=== PATIENT | male | born 1950 | race Caucasian/White ===

== ENCOUNTER 2017-07-02 06:16 | Day surgery (SDC) | payer MEDICARE ==
[2017-07-02] VITALS (12 sets, daily range): BP systolic 131–169; BP diastolic 74–96; PULSE 63–90; RESP 18–20; TEMP 97–97.6; O2SAT 96
[~2017-07-02] VITALS: Ht 167.6 cm; Wt 95.1 kg
[~2017-07-02 06:16] MED LIST: ATEN-100 PO; CHOL1CAP2 PO; FURO20TA PO; GLUCTAB PO; LEVO75TA3 PO; LISI-360 PO; POTA10IN2 PO; PRED5PAK PO; ROSU40 PO
[2017-07-02] MEDS ORDERED: IOHEXOL 350 MG/ML 50 ML BTL (for Cath Lab) OTHER ONE (06:17)
[2017-07-02] MEDS ORDERED: IOHEXOL 350 MG/ML 100 ML BTL (for Cath Lab) OTHER ONE (06:17)
[2017-07-02] MEDS ORDERED: NS 1000P @30 MLS/HR (KVO) IV SCH (06:45)
[2017-07-02] MEDS ORDERED: LISI10TA3 PO (07:06)
[2017-07-02] MEDS ORDERED: FENO160T PO (07:06)
[2017-07-02] MEDS ORDERED: POTA10CA PO (07:06)
[2017-07-02] MEDS ORDERED: TYLE325T PO (07:06)
[2017-07-02] MEDS ORDERED: UMEC1AER INH (07:06)
[2017-07-02] MEDS ORDERED: ASPI-516 CHEW (07:06)
[2017-07-02] MEDS ORDERED: FURO20TA PO (07:06)
[2017-07-02] MEDS ORDERED: METO25TA3 PO (07:06)
[2017-07-02] MEDS ORDERED: PANT40TA3 PO (07:06)
[2017-07-02] MEDS ORDERED: FLUT50SP EACH NARE (07:06)
[2017-07-02] MEDS ORDERED: METF-382 PO (07:06)
[2017-07-02] MEDS ORDERED: ROSU1TAB10 PO (07:06)
[2017-07-02] MEDS ORDERED: FENO1TAB46 PO (07:06)
[2017-07-02] MEDS ORDERED: LEVO.125 PO (07:06)
[2017-07-02] MEDS ORDERED: CO Q100C9 PO (07:06)
[2017-07-02 07:16] LABS: AUTOMATED NEUTROPHIL # 3.5 TH/MM3 (1.8-7.7); BASOPHIL % 0.6 % (0.0-2.0); EOSINOPHIL # 0.1 TH/MM3 (0-0.4); EOSINOPHIL % 2.2 % (0.0-4.0); HEMATOCRIT 40.6 % (39.0-51.0); LYMPH % 18.7 % (9.0-44.0); LYMPHOCYTE # 0.9 TH/MM3 (1.0-4.8); MEAN CELL VOLUME 88.2 FL (80.0-100.0); MEAN CORPUSCULAR HGB CONC 32.8 % (32.0-36.0); MONO % 9.7 % (0.0-8.0); NEUT % 68.8 % (16.0-70.0); PLATELET COUNT 96 TH/MM3 (150-450); RED CELL DISTRIBUTION WIDTH 14.2 % (11.6-17.2); WHITE BLOOD COUNT 5.1 TH/MM3 (4.0-11.0)
[2017-07-02 07:19] LABS: HEMO FLAGS AUTO DIFF
[2017-07-02 07:24] LABS: APTT (PATIENT) 28.7 SEC (24.3-30.1); INTERNATIONAL NORMALIZED RATIO 1.1 RATIO; PROTHROMBIN TIME - PATIENT 12.2 SEC (9.8-11.6)
[2017-07-02 07:41] LABS: BICARBONATE 28.7 MEQ/L (21.0-32.0); POTASSIUM 3.9 MEQ/L (3.5-5.1)
[2017-07-02 07:58] LABS: PLATELET ESTIMATE SMEAR LOW (NORMAL); PLATELET MORPHOLOGY ENLARGED (NORMAL); SCAN/DIFF AUTO DIFF CONFIRMED
[2017-07-02] MEDS ORDERED: MIDAZOLAM HCL 2 MG/2 ML VIAL ONE (09:04)
[2017-07-02] MEDS ORDERED: HEPARIN-NS/PF INJ 1,000 ML ONE (09:05)
[2017-07-02] MEDS ORDERED: NITROGLYCERIN INJ 5 ML ONE (09:07)
[2017-07-02] MEDS ORDERED: HEPARIN SODIUM - IV 10,000 UNITS/10 ML VIAL ONE (09:07)
[2017-07-02] MEDS ORDERED: VERAPAMIL HCL 5 MG/2 ML VIAL ONE (09:07)
[2017-07-02] MEDS ORDERED: TICAGRELOR 90 MG TAB PO ONE (11:37)
--- NOTE | 2017-07-02 11:46 | CATHPROC ---
[employer] HIS Report Study Information Study Number Admission Scheduled Start Study Start [id number] Jul 02 2017 6:16AM 07/02/2017 Jul 02 2017 8:58AM [facility] Cardiac Catheterization Admit Source Facility Department Other [facility] - Escalation Engineer Physician and Clinical Staff Initial Kemar Zavala Door CaptainArt Corey RN Door Captainmary anne Giles RN, Pedro Cash cathlab, cathlab Recorder Jim Walker RCIS(BS) Recorder Jayson Cobian,(R) ScrAnabell SaucedaRT(R) Procedures Performed Procedure Location (Site) Vessel Name Coronary Angiograms LCA Left Coronary Coronary Angiograms RCA Right Coronary Coronary Angiograms BRYAN-LAD Left Coronary Drug Eluting Inflatio CIRC Prox CIRC PTCA CIRC Prox CIRC Wire insertion Fem Art (right) Femoral Art Wire insertion Radial (left) Radial Art. Equipment Time Fine Arts Chair Description Size Mfg Part Number Used/Scraped [id number] 10:45 [employer] WIRE, ASAHI PROWATER 180CM 180CM Used *[id number] WIRE, WHISPER W/HYDROCOAT [id number] 11:07 [employer] 190CM Used 190CM *[id number] TRANSDUCER, TRUWAVE [id number] 08:59 RICHMOND PERRY * Used W/STOCKCOCK *[id number] 534-560T *[id number] 670-002-00 *[id number] 670-002-00 *[id number] 534-518T *[id number] 534-520T *[id number] 534-517T *3980630 534-521T *[id number] 08:59 Nexmo INDUSTRIES PACK, CCL CUSTOM * Used *[id number] 08:59 PlexPress SUPPORT, ARTERIAL ADULT 82075 *[id number] Used [id number] 10:57 MEDTR[employer]IC BALLOON, 2.0 X 10MM EUPHORA 10MM Used *[id number] 11:18 [employer]TR[employer]IC BALLOON, 2.5 X 12MM EUPHORA 12MM Used *[id number] BALLOON, 2.75 X 8MM NC [id number] 11:22 MEDTRONIC 8MM Used EUPHORA *[id number] BALLOON, 3.0 X 6MM NC [id number] 11:27 MEDTRONIC 6MM Used EUPHORA *[id number] 11:04 MEDTRONIC STENT, 2.5 12MM SOLOMON 2.5 12MM Used *[id number] 10:45 [employer]TR[employer]IC/AVE EBU 3.5 Z2 GUIDE CATHETER FR 6 Used *[id number] [id number] 10:48 Thing[employer] 30 BARRINGTON INDEFLATOR Used *[id number] BAND, RADIAL COMPRESSION TR [id number] 11:36 Placed MEDICAL 24CM Used SHORT 24 *[id number] [id number] 08:59 Thing[employer] WIRE, EXCHANGE 260CM 3MMJ 260CM Used *[id number] 08:59 NAMIC MANIFOLD, 4 PORT * Used *[id number] 08:59 NYCOMED OMNIPAQUE, 350 MG, 150ML 150ML [id number] Used [id number] 08:59 [employer] MEDICAL BLANKET,WARM AIR CCL * Used *[id number] SHEATH, FR6 TRANSRADIAL RM*[id number] 08:59 TM3 Systems FR 6 Used SLENDER 10CM *[id number] Equipment Model, Serial, Lot Number and Expiration Data Description Model Number Serial Number Lot Number Expiration Date BALLOON, 2.75 X 8MM NC [id number] 03-12-2019 EUPHORA BALLOON, 3.0 X 6MM NC EUPHORA [id number] 02-23-2019 STENT, 2.5 12MM SOLOMON [id number] 02-06-2019 History: Current Medications Medication Dosage/Unit Route Frequency Last Date/Time Taken Statins (any) Beta Gabriela ASA History: Allergies Allergy Reaction No Known Allergies History: Risk Factors Family History of Hypertension Dyslipidemia Previous HI Previous Heart Failure Premature CAD Yes Yes No Yes No Prior Valve Prior PCI Prior PCIDate Prior CABG Prior CABGDate Surgery Yes Yes 08/13/2008 Yes 08/13/2011 Cerebrovascular Peripheral Artery Chronic Lung On Dialysis Diabetes Diabetes Therapy Disease Disease Disease No No No Yes Yes Oral History: Symptoms/Diagnosis Selection Items Chest pain History: CV Disease Selection Items Known CAD History: Stress Tests Stress or Imaging Studies Performed Yes Standard Exercise Stress Test No Stress Echo No Stress Test SPECT Stress Test SPECT Result Stress Test SPECT Ischemia Risk/Extent Yes Positive High Stress Test CMR No Cardiac CTA Coronary Calcium Score No No History: Other Disease Selection Items CAD HTN History: HI/CV Data Previous Cath Date Previous CABG Date 08/13/2008 08/13/2011 History: Other Current Smoker Method Quit Packs a Day Years Used Pack Years No Cigarettes 12 Years Ago 2 30 60 Labs Hgb (g/dl) Hct (%) WBC (l/cumm) Platelets (thousands) 11.60-17.00 35.00-51.00 4.00-11.00 150.00-450.00 13.3 40.6 5.1 96 Glucose (mg/dl) BUN (mg/dl) Creatinine (mg/dl) BUN:Creatinine (1:x) 74.00-106.00 7.00-18.00 0.50-1.30 10.00-20.00 154 17 1.2 14.2 Na (meq/l) K (meq/l) 136.00-145.00 3.50-5.10 139 3.9 INR (PTT:PT) 0.90-1.10 1.1 CPK-MB (ng/ML) 0.50-3.60 Not Drawn Medication Medication Total Dose (Bolus/Oral) Medication Total Dosage/Unit 1% XYLOCAINE 3 mL BRILINTA 180 mg FENTANYL 100 mcg HEPARIN 6700 units RADIAL COCKTAIL 5 mL (Bolus) VERSED 0.5 mg Medications (Bolus/Oral) Medication Time Given Dosage/Unit Administered By Reason 07/02/2017 10:11:32 VERSED 0.5 mg Art Matos AM 0.5 mg VERSED given in lab by Art Matos RN in Left Antecubital via Peripheral IV. Ordered by Kemar House 07/02/2017 10:11:38 FENTANYL 50 mcg Art Matos AM 50 mcg FENTANYL given in lab by Art Matos RN in Left Antecubital via Peripheral IV. Ordered by Kemar Garcia 07/02/2017 10:18:00 1% XYLOCAINE 3 mL Kemar Garcia AM 3 mL 1% XYLOCAINE given in lab by Kemar Garcia in Left Radial via Subcutaneous. 07/02/2017 10:20:20 Ntg 200mcg Verapamil 2.5mg Heparin RADIAL COCKTAIL 5 mL (Bolus) Kemar Garcia AM 3000U 5 mL (Bolus) RADIAL COCKTAIL given in lab by Kemar Garcia in Left Radial via Radial. Using [So lution Name]. Reason: Ntg 200mcg Verapamil 2.5mg Heparin 3800U. 07/02/2017 10:47:55 HEPARIN 5700 units Art Matos AM 5700 units HEPARIN given in lab by Art Matos RN in Left Antecubital via Peripheral IV. Ordered by Kemar Garcia 07/02/2017 10:48:07 FENTANYL 50 mcg Art Matos AM 50 mcg FENTANYL given in lab by Art Matos RN in Left Antecubital via Peripheral IV. Ordered by Kemar Garcia 07/02/2017 11:22:44 HEPARIN 1000 units Pedro Giles RN AM 1000 units HEPARIN given in lab by Pedro Giles RN via Peripheral IV. Ordered by Kemar Garcia 07/02/2017 11:40:00 BRILINTA 180 mg Pedro Giles RN, AM 180 mg BRILINTA given in lab by Pedro Giles RN via Oral. Ordered by Kemar Garcia Medication (Drip) Medication Time Given Dosage/Unit Concentration/Unit Diluent (ml) Solutio n IV Solutions 07/02/2017 8:58:38 AM 0 mL (IV) 500 NaCl .9 Patient arrived on IV Solutions given by cathlab, mary in Left Antecubital via Peripheral IV. Pump /Drip Flow = 20 ml/hr using NaCl .9. Ordered by Kemar Garcia Initial Case Assessment Cardiovascular HR Rhythm NIBP Chest Pain 75 nsr 179/90 0 Edema Present Skin color Skin None Normal Warm Dry Circulatory - Right Pulses Dorsalis Pedis Femoral Radial 2 2 2 Scale (0,1,2,3,4,d) Scale (0,1,2,3,4,d) Neurological State Oriented to time-place- Alert Moves all extremities person Respiration - General Respiration Rate SpO2 (%) (B/min) 15 96 Final Case Assessment Cardiovascular HR Rhythm NIBP Chest Pain 80 nsr 155/99 0 Edema Present Skin color Skin None Normal Warm Dry Circulatory - Right Pulses Dorsalis Pedis Femoral Radial 2 2 2 Scale (0,1,2,3,4,d) Scale (0,1,2,3,4,d) Neurological State Oriented to time-place- Alert Moves all extremities person Respiration - General Respiration Rate SpO2 (%) (B/min) 15 96 Chronological Log Time Study Chronological Log 8:58:29 Patient arrived via Bed. 8:58:30 Patient Name, D.O.B, / Armband Verified By R.N. 8:58:31 Consent signed by the physician and the patient and verified by the Escalation Engineer staff. 8:58:31 Pre-op and post- op instructions given; patient acknowledges understanding of instructions. 8:58:32 Verbal Stimulation=2 Physical Stimulation=2 Airway=2 Respiration=2 TOTAL=8. (0=absent, 1=san ited, 2=present) 8:58:32 Presedation assessment performed by Escalation Engineer RN. 8:58:33 Allens test performed on the left radial and ulnar artery. 8:58:35 Immediate Presedation assesment performed by physician. 8:58:35 Patient has been NPO for More than 6Hrs. 8:58:36 Skin Breakdown- none per patient 8:58:37 Patient Warmer Placed on the Table. 8:58:38 A # 20 IV was noted in the Antecubital (left). Grade = 0 Patient arrived on IV Solutions given by cathlab, cathlab in Left Antecubital via Peripheral IV . Pump/Drip Flow = 20 8:58:38 ml/hr using NaCl .9. Ordered by Kemar Garcia 8:58:39 History and physical on the chart or being dictated. Assessment: Initial Case, HR=75 BPM, Rhythm=nsr, VHTF=725/90 mmhg, Chest Pain=0, Edema=None, Co indu=Normal, Skin = Warm, Dry 9:02:49 Right Pulses: Napoleon Ped=2, Femoral=2, Radial=2 Neurological: State=Alert, Ox3, ESCALANTE Respiration: Resp=15 B/min, SpO2=96 % Vitals capture started with the following parameters, Patient=Adult, Interval=5 min, Initial Pr frwxud=231 mmHg, 9:03:36 Deflation Rate=5 mmHg, Cuff placed on Left Arm 9:05:01 HR=73 bpm, ELKZ=609/90 mmhg, SpO2=97.0 %, Resp=16 B/min, Pain=0, Blanca=10, Seals=2 9:07:27 Reference ECG taken 9:09:23 HR=75 bpm, DJAE=721/91 mmhg, SpO2=96.0 %, Resp=19 B/min, Pain=0, Blanca=10, Seals=2 9:10:00 Left radial and groin(s) prepped with 2% chlorhexidine, and draped after a 3 min. waiting ti me. 9:14:22 HR=72 bpm, BWVA=246/94 mmhg, SpO2=96.0 %, Resp=16 B/min, Pain=0, Blanca=10, Seals=2 9:19:23 HR=75 bpm, XPKQ=174/88 mmhg, SpO2=95 %, Resp=19 B/min, Pain=0, Blanca=10, Seals=2 9:24:22 HR=74 bpm, VJON=896/87 mmhg, SpO2=95 %, Resp=19 B/min, Pain=0, Blanca=10, Seals=2 9:29:21 HR=70 bpm, UMXZ=079/84 mmhg, SpO2=93.0 %, Resp=16 B/min, Pain=0, Blanca=10, Seals=2 9:34:20 HR=69 bpm, UMUT=382/80 mmhg, SpO2=95 %, Resp=18 B/min, Pain=0, Blanca=10, Seals=2 9:39:21 HR=68 bpm, QHWW=630/81 mmhg, SpO2=93.0 %, Resp=16 B/min, Pain=0, Blanca=10, Seals=2 9:44:22 HR=69 bpm, VAYJ=568/86 mmhg, SpO2=92.0 %, Resp=17 B/min, Pain=0, Blanca=10, Seals=2 9:49:21 HR=66 bpm, NUBA=872/85 mmhg, SpO2=91.0 %, Resp=16 B/min, Pain=0, Blanca=10, Seals=2 9:54:20 HR=67 bpm, YLOP=895/83 mmhg, SpO2=94.0 %, Resp=17 B/min, Pain=0, Blanca=10, Seals=2 9:59:17 HR=65 bpm, OOAG=654/82 mmhg, SpO2=95 %, Resp=16 B/min, Pain=0, Blanca=10, Seals=2 10:04:22 HR=67 bpm, DYSS=693/81 mmhg, SpO2=92.0 %, Resp=19 B/min, Pain=0, Blanca=10, Seals=2 10:08:55 MD arrived. 10:09:21 Contrast Scanned 10::22 Immediate Presedation assesment performed by physician. 10:09:26 HR=70 bpm, LLWJ=326/89 mmhg, SpO2=94.0 %, Resp=18 B/min, Pain=0, Blanca=10, Seals=2 10:11:32 0.5 mg VERSED given in lab by Art Matos, RN in Left Antecubital via Peripheral IV. Ord ered by Kemar Garcia. 50 mcg FENTANYL given in lab by Art Matos, RN in Left Antecubital via Peripheral IV. Order ed by Kemar Garcia 10:11:38 G. 10:15:03 HR=67 bpm, KROR=270/77 mmhg, LjM4=728.0 %, Resp=16 B/min, Pain=0, Blanca=10, Seals=2 Time Out. Correct patient, correct procedure, correct physician, power injector not loaded with contrast with surgical 10:16:52 team present. Time Out Concurred by MD and individual staff in procedure. 10:17:09 Case Start 10:17:10 Verbal Stimulation=2 Physical Stimulation=2 Airway=2 Respiration=2 TOTAL=8. (0=absent, 1=li mited, 2=present) 10:18:00 3 mL 1% XYLOCAINE given in lab by Kemar Garcia in Left Radial via Subcutaneous. 10:19:56 Access site was Left Radial Artery. 10:20:03 HR=73 bpm, EQXU=467/96 mmhg, SpO2=96.0 %, Resp=14 B/min, Pain=0, Blanca=10, Seals=2 A SHEATH, FR6 TRANSRADIAL SLENDER 10CM FR 6 was advanced into the Radial (left) using the Slim modi 10:20:09 technique. 5 mL (Bolus) RADIAL COCKTAIL given in lab by Kemar Garcia in Left Radial via Radial. Usi ng [Solution Name]. 10:20:20 Reason: Ntg 200mcg Verapamil 2.5mg Heparin 3800U. A JR 4.0 INFINITI CATHETER FR 5 was advanced over a wire. OMNIPAQUE, 350 MG, 150ML 150ML was us ed for 10:20:47 injections. Recorded Pressure: Ao, HR=80, Condition=Condition 1 10:24:00 (Aorta) Ao 125/71/94 10:24:23 HR=78 bpm, FMDE=028/84 mmhg, SpO2=96.0 %, Resp=15 B/min, Pain=0, Blanca=10, Seals=2 10:29:24 HR=84 bpm, XPLQ=069/88 mmhg, SpO2=95.0 %, Resp=18 B/min, Pain=0, Blanca=10, Seals=2 10:30:50 The RCA was injected and visualized at various angles. OMNIPAQUE, 350 MG, 150ML 150ML used . After removing the current catheter a JL 4.0 INFINITI CATHETER FR 5 was advanced over a WIRE, E XCHANGE 260CM 10:32:08 3MMJ 260CM. 10:34:25 HR=88 bpm, UNUE=538/86 mmhg, SpO2=94.0 %, Resp=17 B/min, Pain=0, Blanca=10, Seals=2 After removing the current catheter a JL 4.5 INFINITI CATHETER FR 5 was advanced over a WIRE, E XCHANGE 260CM 10:34:33 3MMJ 260CM. After removing the current catheter a JL 3.5 INFINITI CATHETER FR 5 was advanced over a WIRE, E XCHANGE 260CM 10:38:28 3MMJ 260CM. 10:39:26 HR=82 bpm, XNGC=256/85 mmhg, SpO2=94.0 %, Resp=19 B/min, Pain=0, Blanca=10, Seals=2 10:41:29 The LCA was injected and visualized at various angles. OMNIPAQUE, 350 MG, 150ML 150ML used . After removing the current catheter a KENTRELL INFINITI CATHETER FR 5 was advanced over a WIRE, EXCH KAEL 260CM 10:43:33 3MMJ 260CM. 10:44:27 HR=83 bpm, NZYS=029/86 mmhg, SpO2=95.0 %, Resp=17 B/min, Pain=0, Blanca=10, Seals=2 10:46:47 The BRYAN-LAD was injected and visualized at various angles. OMNIPAQUE, 350 MG, 150ML 150ML used. After removing the current catheter a EBU 3.5 Z2 GUIDE CATHETER FR 6 was advanced over a WIRE, EXCHANGE 10:46:53 260CM 3MMJ 260CM. 5700 units HEPARIN given in lab by Art Matos, RN in Left Antecubital via Peripheral IV. Or dered by Kemar Garcia 10:47:55 G. 50 mcg FENTANYL given in lab by Art Matos, RN in Left Antecubital via Peripheral IV. Order ed by Kemar Garcia 10:48:07 G. 10:49:26 HR=80 bpm, GGDW=426/93 mmhg, SpO2=95 %, Resp=16 B/min, Pain=0, Blanca=10, Seals=2 After removing the current catheter a JL 3.5 GUIDE CATHETER FR 6 was advanced over a WIRE, EXCH KAEL 260CM 10:53:24 3MMJ 260CM. 10:54:27 HR=82 bpm, XPWG=341/93 mmhg, SpO2=94.0 %, Resp=17 B/min, Pain=0, Blanca=10, Seals=2 10:56:38 A WIRE, ASAHI PROWATER 180CM 180CM was inserted via Radial (left). 10:58:27 Interventional wire has crossed the lesion 10:59:28 HR=82 bpm, HMAS=852/86 mmhg, SpO2=94.0 %, Resp=13 B/min, Pain=0, Blanca=10, Seals=2 10:59:37 Activated Clotting Time Drawn A BALLOON, 2.0 X 10MM EUPHORA 10MM was inserted over WIRE, ASAHI PROWATER 180CM 180CM via the C IRC 11:00:18 Prox. A BALLOON, 2.0 X 10MM EUPHORA 10MM over a WIRE, ASAHI PROWATER 180CM 180CM in the CIRC Prox was 11:02:24 inflated using a 30 BARRINGTON INDEFLATOR at 10 barrington for 25 sec. 11:02:51 Balloon Removed. A STENT, 2.5 12MM SOLOMON 2.5 12MM was advanced through a JL 3.5 GUIDE CATHETER FR 6 over a WIRE, ASAHI 11:03:46 PROWATER 180CM 180CM. 11:04:27 HR=80 bpm, RFHQ=427/88 mmhg, Resp=17 B/min, Pain=0, Blanca=10, Seals=2 11:04:54 ACT (Normal Range 90-180) = 297 11:06:40 Stent not deployed. Stent removed and intact. 11:07:20 A WIRE, WHISPER W/HYDROCOAT 190CM 190CM was inserted via Fem Art (right). 11:09:28 HR=80 bpm, KWUN=133/87 mmhg, SpO2=96.0 %, Resp=11 B/min, Pain=0, Blanca=10, Seals=2 A STENT, 2.5 12MM SOLOMON 2.5 12MM was advanced through a JL 3.5 GUIDE CATHETER FR 6 over a WIRE, ASAHI 11:09:37 PROWATER 180CM 180CM. 11:10:23 Stent not deployed. Stent removed and intact. A STENT, 2.5 12MM SOLOMON 2.5 12MM was advanced through a JL 3.5 GUIDE CATHETER FR 6 over a WIRE, WHISPER 11:11:28 W/HYDROCOAT 190CM 190CM. 11:12:03 Stent not deployed. Stent removed and intact. 11:14:27 HR=81 bpm, DZXD=003/86 mmhg, SpO2=95.0 %, Resp=16 B/min, Pain=0, Blanca=10, Seals=2 A BALLOON, 2.5 X 12MM EUPHORA 12MM was inserted over WIRE, ASAHI PROWATER 180CM 180CM via the C IRC 11:15:32 Prox. A BALLOON, 2.5 X 12MM EUPHORA 12MM over a WIRE, ASAHI PROWATER 180CM 180CM in the CIRC Prox was 11:15:44 inflated using a 30 BARRINGTON INDEFLATOR at 12 barrington for 16 sec. A BALLOON, 2.5 X 12MM EUPHORA 12MM over a WIRE, ASAHI PROWATER 180CM 180CM in the CIRC Prox was 11:16:22 inflated using a 30 BARRINGTON INDEFLATOR at 12 barrington for 18 sec. 11:17:37 Balloon Removed. A STENT, 2.5 12MM SOLOMON 2.5 12MM was advanced through a JL 3.5 GUIDE CATHETER FR 6 over a WIRE, ASAHI 11:17:42 PROWATER 180CM 180CM. 11:18:44 Wire removed 11:19:28 HR=81 bpm, OOZB=985/90 mmhg, ErI3=711.0 %, Resp=16 B/min, Pain=0, Blanca=10, Seals=2 A STENT, 2.5 12MM SOLOMON 2.5 12MM was deployed using a 30 BARRINGTON INDEFLATOR at 18 atmospheres for 25 seconds in :: the CIRC Prox. ::43 Re-inflated the stent balloon in the CIRC Prox to 18 BARRINGTON for 10 seconds. : Delivery device removed A BALLOON, 2.75 X 8MM NC EUPHORA 8MM was inserted over WIRE, WHISPER W/HYDROCOAT 190CM 190CM vi a the :: CIRC Prox. : 1000 units HEPARIN given in lab by Pedro Giles RN via Peripheral IV. Ordered by Kemar Garcia A BALLOON, 2.75 X 8MM NC EUPHORA 8MM over a WIRE, ASAHI PROWATER 180CM 180CM in the CIRC Prox w as :28 inflated using a 30 BARRINGTON INDEFLATOR at 18 barrington for 16 sec. A BALLOON, 2.75 X 8MM NC EUPHORA 8MM over a WIRE, ASAHI PROWATER 180CM 180CM in the CIRC Prox w as ::58 inflated using a 30 BARRINGTON INDEFLATOR at 18 barrington for 10 sec. 11:24:29 HR=80 bpm, YGVS=715/93 mmhg, SpO2=95.0 %, Resp=17 B/min, Pain=0, Blanca=10, Seals=2 A BALLOON, 2.75 X 8MM NC EUPHORA 8MM over a WIRE, ASAHI PROWATER 180CM 180CM in the CIRC Prox w as :02 inflated using a 30 BARRINGTON INDEFLATOR at 18 barrington for 10 sec. :: Balloon Removed. A BALLOON, 3.0 X 6MM NC EUPHORA 6MM was inserted over WIRE, WHISPER W/HYDROCOAT 190CM 190CM via the :12 CIRC Prox. A BALLOON, 3.0 X 6MM NC EUPHORA 6MM over a WIRE, WHISPER W/HYDROCOAT 190CM 190CM in the CIRC Pr ox : was inflated using a 30 BARRINGTON INDEFLATOR at 12 barrington for 10 sec. A BALLOON, 3.0 X 6MM NC EUPHORA 6MM over a WIRE, WHISPER W/HYDROCOAT 190CM 190CM in the CIRC Pr ox 11:28:44 was inflated using a 30 BARRINGTON INDEFLATOR at 16 barrington for 10 sec. A BALLOON, 3.0 X 6MM NC EUPHORA 6MM over a WIRE, WHISPER W/HYDROCOAT 190CM 190CM in the CIRC Pr ox 11:29:12 was inflated using a 30 BARRINGTON INDEFLATOR at 16 barrington for 10 sec. A BALLOON, 3.0 X 6MM NC EUPHORA 6MM over a WIRE, WHISPER W/HYDROCOAT 190CM 190CM in the CIRC Pr ox 11:29:26 was inflated using a 30 BARRINGTON INDEFLATOR at 20 barrington for 10 sec. 11:29:30 HR=83 bpm, GCQG=890/96 mmhg, SpO2=95.0 %, Resp=16 B/min, Pain=0, Blanca=10, Seals=2 A BALLOON, 3.0 X 6MM NC EUPHORA 6MM over a WIRE, WHISPER W/HYDROCOAT 190CM 190CM in the CIRC Pr ox 11:29:30 was inflated using a 30 BARRINGTON INDEFLATOR at 24 barrington for 10 sec. A BALLOON, 3.0 X 6MM NC EUPHORA 6MM over a WIRE, WHISPER W/HYDROCOAT 190CM 190CM in the CIRC P rebekah 11:30:10 was inflated using a 30 BARRINGTON INDEFLATOR at 24 barrington for 10 sec. 11:30:34 Balloon Removed. 11:33:13 Wire removed 11:33:41 Catheter was removed 11:34:32 HR=83 bpm, ALNE=290/99 mmhg, SpO2=96.0 %, Resp=15 B/min, Pain=0, Blanca=10, Seals=2 Radial Compression Device Used. 10 mLs of air placed in BAND, RADIAL COMPRESSION TR SHORT 24 2 4CM. Affected 11:34:47 hand 95 % O2 saturation. 11:35:00 Case End Assessment: Final Case, HR=80 BPM, Rhythm=nsr, MCHL=082/99 mmhg, Chest Pain=0, Edema=None, Col or=Normal, Skin = Warm, Dry 11:35:49 Right Pulses: Napoleon Ped=2, Femoral=2, Radial=2 Neurological: State=Alert, Ox3, ESCALANTE Respiration: Resp=15 B/min, SpO2=96 % 11:36:03 Sterile dressing applied to site 11:36:04 No case complications noted. 11:36:04 Cine recording checked. 11:36:06 Holding Area notified of successful intervention. 11:36:06 Bedside Report will be given. 11:36:07 Implantable Device card placed in patient's chart. 11:36:08 Contrast Scanned 11:36:09 Verbal Stimulation=2 Physical Stimulation=2 Airway=2 Respiration=2 TOTAL=8. (0=absent, 1=l imited, 2=present) 11:39:37 HR=80 bpm, SEIH=105/86 mmhg, SpO2=97.0 %, Resp=16 B/min, Pain=0, Blanca=10, Seals=2 11:40:00 180 mg BRILINTA given in lab by Pedro Giles RN via Oral. Ordered by Kemar Garcia 11:44:37 Patient moved to [facility] End Study - Contrast Media Used In Study Contrast Total Opened (mL) Total Used (mL) Total Wasted (mL) Omnipaque 150 150 0 End Study - Maximum Contrast Load Max Contrast Load (mL) 396.6 End Study - Radiation Exposure Fluoro Time (minutes) 22.5 End Study - Patient Disposition Complications Transferred To Interventional Outcome No Escalation Engineer Holding successful
[2017-07-02] MEDS ORDERED: oxyCODONE/ACETAMINOPHEN 10 MG/325 MG TAB PO PRN (12:00)
[2017-07-02] MEDS ORDERED: oxyCODONE/ACETAMINOPHEN 5 MG/325 MG TAB PO PRN (12:00)
[2017-07-02] MEDS ORDERED: ACETAMINOPHEN 325 MG TAB PO PRN (12:00)
[2017-07-02] MEDS ORDERED: MISC INFORMATION XX ONE (14:45)
[2017-07-02] MEDS: ACETAMINOPHEN 325 MG TAB PO PRN (15:05)
--- NOTE | 2017-07-02 18:53 | EKG ---
Date Performed: 07/02/2017 Time Performed: 07:03:00 PTAGE: 67 years EKG: Sinus rhythm with borderline 1st degree A-V block. Leftward axis Consider Inferior infarct - age undetermined Lat eral T wave changes may be due to myocardial ischemia Abnormal ECG PREVIOUS TRACING : 07/29/2014 16.10 DOCTOR: Nahun Mike Interpretating Date/Time 07/02/2017 18:52:21
[2017-07-02] MEDS: POTASSIUM CHLORIDE 10 MEQ CAP PO SCH (20:59)
[2017-07-02] MEDS: TICAGRELOR 90 MG TAB PO SCH (21:00)
[2017-07-02] MEDS: METOPROLOL TARTRATE 25 MG TAB PO SCH (21:01)
[2017-07-03] VITALS (15 sets, daily range): BP systolic 110–153; BP diastolic 68–93; PULSE 62–82; RESP 18; TEMP 97.7–97.9; O2SAT 94–96
[2017-07-03 05:59] LABS: AUTOMATED NEUTROPHIL # 3.1 TH/MM3 (1.8-7.7); BASOPHIL % 0.6 % (0.0-2.0); EOSINOPHIL # 0.1 TH/MM3 (0-0.4); EOSINOPHIL % 2.1 % (0.0-4.0); HEMATOCRIT 38.5 % (39.0-51.0); LYMPH % 20.6 % (9.0-44.0); MEAN CELL VOLUME 88.5 FL (80.0-100.0); MEAN CORPUSCULAR HGB CONC 32.7 % (32.0-36.0); MONO % 10.2 % (0.0-8.0); NEUT % 66.5 % (16.0-70.0); RED BLOOD COUNT 4.36 MIL/MM3 (4.50-5.90); WHITE BLOOD COUNT 4.7 TH/MM3 (4.0-11.0)
[2017-07-03] MEDS ORDERED: LEVOTHYROXINE SODIUM 125 MCG TAB PO SCH (06:00)
[2017-07-03 06:01] LABS: HEMO FLAGS AUTO DIFF
--- NOTE | 2017-07-03 06:10 | MA ---
cc: KEMAR GURROLA DO DATE OF PROCEDURE July 02, 2017 PROCEDURE Coronary angiogram, bypass angiogram, Crane drug-eluting stent (2.5 x 12) to the left circumflex. Moderate sedation 83 minutes PREPROCEDURE DIAGNOSIS Unstable angina on antianginal medications. Abnormal stress test. POSTPROCEDURE DIAGNOSES History of CABG x 1 (08/13 patent). Coronary artery disease status post Crane drug-eluting stent (2.5 x 12) to ostial left circumflex. MEDICATIONS 1. Versed 0.5 mg. 2. Fentanyl 100 mcg. 3. Verapamil 2.5 mg. 4. Nitro 200 mcg. 5. Heparin 10,500 units. 6. Brilinta 180 mg. CONTRAST 150 cc. FLUOROSCOPY 22.5 minutes. MODERATE SEDATION 83 minutes. ESTIMATED BLOOD LOSS 20 cc. PROCEDURAL SUMMARY Yvon Wilson is a pleasant 67-year-old male who sees my partner Dr. Pavon in the office and underwent stress testing due to chest pain. He was found to have a large area of lateral ischemia and because of this he was recommended cardiac catheterization. The risks, benefits and alternatives were explained to him and he consented as such. He was brought to the lab and prepped in the usual sterile fashion. The left radial artery was accessed using a modified Seldinger technique and placement of a 5/6 Wolof Slender Sheath. This was easily aspirated and flushed. A JR-4 was advanced over the J-wire to the ascending aorta and used for selective angiography of the right coronary artery. This was exchanged out over for a JL-3.5 which was used for selective angiography of the left coronary artery system. The JL-3.5 was exchanged out for an IM catheter which was used for selective angiography of the BRYAN to LAD. Please see notes below for intervention. Postprocedure a radial band was placed over the arteriotomy site for hemostasis. The patient was given 180 mg of Brilinta. The patient left the label maker cardiovascularly stable. FINDINGS LEFT MAIN: Normal-sized vessel with no significant disease. It trifurcates into an LAD, ramus and circumflex. LAD: Diffuse 50-70% disease throughout. It supplies two small diagonals and in the midportion is noted to have competitive flow. RAMUS: 100% occluded stent in the ostium. The ostial stent is noted to come back into the left main somewhat. LEFT CIRCUMFLEX: Normal-sized vessel with a 90% stenosis in the ostial portion. Otherwise no significant disease. It supplies three obtuse marginals as well as a PDA. RCA: Nondominant vessel which supplies an RV branch. BRYAN to LAD: Patent with good flow. Distal to the anastomosis there is a 50% lesion in the LAD before the apex. INTERVENTION Because of Mr. Wilson's unstable angina on multiple antianginals and abnormal stress test with lateral ischemia, it was felt that intervening on the left circumflex was his best option. He was given heparin as an additional anticoagulant. An EBU guide was attempted to engage in the left main but was unable to and so a JL-3.5 guide was engaged in the left main. A Prowater wire was advanced into the distal circumflex. A Compliant balloon (2 x 12) was used to predilate the lesion. I was unable to place a stent across the lesion due to the 90-degree turn of the left circumflex and so a moderate support Whisper wire was then placed distally in the left circumflex as a steve wire. A compliant balloon (2.5 x 12) was then used to further predilate the lesion. An Eder drug-eluting stent (2.5 x 12) was then placed across the lesion and stented back to the left main. A Non-Compliant balloon (2.5 x 6) was then used to post-dilate the stent. There was still some mild post-stenosis and so a noncompliant balloon (3 x 6) was used further to try to dilate the lesion. There was still 10% post stenosis in the midportion of the stent which could not be further dilated. The wire was removed. Guide was removed. IMPRESSIONS 1. Unstable angina on multiple antianginals. 2. History of CABG x1 with a patent BRYAN to LAD. 3. Coronary artery disease status post Crane drug-eluting stent (2.5 x 12) to ostial left circumflex. RECOMMENDATIONS 1. Mr. Wilson underwent stenting of his left circumflex with a drug-eluting stent and will be placed on aspirin and Brilinta therapy as he previously had stent thrombosis while on Plavix. 2. He will be watched overnight and if stable in the morning discharged home. 3. Upon discharge he will follow up with Dr. Pavon. Thank you for allowing me to see Yvon Wilson. If there are any questions, please do not hesitate to call. Kemar Gurrola DO ALYSIAP/SSB /8:23 PM /6:00 AM
[2017-07-03 06:13] LABS: BICARBONATE 26.2 MEQ/L (21.0-32.0)
[2017-07-03 06:16] LABS: POTASSIUM 4.2 MEQ/L (3.5-5.1)
[2017-07-03] MEDS: ACETAMINOPHEN 325 MG TAB PO PRN (06:27)
[2017-07-03] MEDS ORDERED: LISINOPRIL 10 MG TAB PO SCH (09:00)
[2017-07-03] MEDS ORDERED: FENOFIBRATE 145 MG TAB PO SCH (09:00)
[2017-07-03] MEDS ORDERED: FUROSEMIDE 20 MG TAB PO SCH (09:00)
[2017-07-03] MEDS ORDERED: ATORVASTATIN 80 MG TAB PO SCH (09:00)
[2017-07-03] MEDS ORDERED: PANTOPRAZOLE SOD 40 MG DELAYED RELEASE TAB PO SCH (09:00)
[2017-07-03] MEDS ORDERED: ASPIRIN 81 MG CHEW TAB CHEW SCH (09:00)
[2017-07-03] MEDS ORDERED: UMECLIDINIUM 62.5 MCG/VILANTEROL 25 MCG INHALER INH SCH (09:00)
[2017-07-03] MEDS ORDERED: FENOFIBRATE 40 MG PO SCH (09:00)
[2017-07-03] MEDS ORDERED: NON-FORMULARY DRUG (Coenzyme Q10 (Ubidecarenone) (Co Q 10) 200 MG) PO SCH (09:00)
[2017-07-03 09:17] LABS: PLATELET COUNT 109 TH/MM3 (150-450); SCAN/DIFF AUTO DIFF CONFIRMED
[2017-07-03] MEDS: POTASSIUM CHLORIDE 10 MEQ CAP PO SCH (09:55)
[2017-07-03] MEDS: TICAGRELOR 90 MG TAB PO SCH (09:56)
[2017-07-03] MEDS: METOPROLOL TARTRATE 25 MG TAB PO SCH (09:57)
[2017-07-03] MEDS ORDERED: BRIL90TA PO (11:45)
[2017-07-03] MEDS ORDERED: METF-382 PO (11:45)
--- NOTE | 2017-07-03 23:11 | PD.CARD.PN ---
Subjective Subjective Remarks Patient seen this morning, late entry note Doing well, up out of bed ambulating. Objective Medications Current Medications Sodium Chloride 1,000 ml @ 30 mls/hr Q24H IV Last administered on 07/02/17 18:06; Start 07/02/17 at 06:45; Stop 07/03/17 at 12:44; Status DC Midazolam HCl (Versed Inj) 2 mg STK-MED ONCE .ROUTE Last administered on 09:04; Start 07/02/17 at 09:04; Stop 07/02/17 at 09:05; Status DC Fentanyl Citrate (fentaNYL INJ) 100 mcg STK-MED ONCE .ROUTE Last administered on 07/02/17 09:04; Start 07/02/17 at 09:04; Stop 07/02/17 at 09:05; Status DC Heparin Sodium/ Sodium Chloride 1,000 ml @ As Directed STK-MED ONCE .ROUTE Last administered on 07/02/17 09:05; Start 07/02/17 at 09:05; Stop 07/02/17 at 09:06; Status DC Verapamil HCl (Isoptin Inj) 5 mg STK-MED ONCE .ROUTE Last administered on 07/02 09:07; Start 07/02/17 at 09:07; Stop 07/02/17 at 09:08; Status DC Heparin Sodium (Porcine) (Heparin Inj) 10,000 units STK-MED ONCE .ROUTE Last administered on 07/02/17 09:07; Start 07/02/17 at 09:07; Stop 07/02/17 at 09 :08; Status DC Nitroglycerin 5 ml @ As Directed STK-MED ONCE .ROUTE Last administered on 07/02 09:07; Start 07/02/17 at 09:07; Stop 07/02/17 at 09:08; Status DC Ticagrelor (Brilinta) 180 mg STK-MED ONCE PO Last administered on 07/02/17 11 :37; Start 07/02/17 at 11:37; Stop 07/02/17 at 11:38; Status DC Acetaminophen (Tylenol) 650 mg Q4H PRN PO PAIN SCALE 1 TO 3; Start 07/02/17 at 12:00; Stop 07/02/17 at 12:00; Status DC Aspirin (Aspirin Chew) 81 mg DAILY CHEW Last administered on 07/03/17 09:56; Start 07/03/17 at 09:00; Stop 07/03/17 at 12:44; Status DC Furosemide (Lasix) 20 mg DAILY PO Last administered on 07/03/17 09:57; Start 07/03/17 at 09:00; Stop 07/03/17 at 12:44; Status DC Levothyroxine Sodium (Synthroid) 125 mcg DAILY@0600 PO Last administered on 06:26; Start 07/03/17 at 06:00; Stop 07/03/17 at 12:44; Status DC Lisinopril (Prinivil) 10 mg DAILY PO Last administered on 07/03/17 09:57; Start 07/03/17 at 09:00; Stop 07/03/17 at 12:44; Status DC Metoprolol Tartrate (Lopressor) 25 mg BID PO Last administered on 07/03/17 09 :57; Start 07/02/17 at 21:00; Stop 07/03/17 at 12:44; Status DC Pantoprazole Sodium (Protonix) 40 mg DAILY PO Last administered on 07/03/17 09:56; Start 07/03/17 at 09:00; Stop 07/03/17 at 12:44; Status DC Potassium Chloride (KCl) 10 meq BID PO Last administered on 07/03/17 09:55; Start 07/02/17 at 21:00; Stop 07/03/17 at 12:44; Status DC Non-Formulary Medication 200 mg DAILY PO ; Start 07/03/17 at 09:00; Stop 07/03 at 09:00; Status DC Non-Formulary Medication 40 mg DAILY PO ; Start 07/03/17 at 09:00; Status UNV Fenofibrate (Tricor) 145 mg DAILY PO Last administered on 07/03/17 09:56; Start 07/03/17 at 09:00; Stop 07/03/17 at 12:44; Status DC Atorvastatin Calcium (Lipitor) 80 mg DAILY PO Last administered on 07/03/17 09:54; Start 07/03/17 at 09:00; Stop 07/03/17 at 12:44; Status DC Acetaminophen (Tylenol) 325 mg Q4H PRN PO PAIN SCALE 1 TO 2 Last administered on 07/03/17 06:27; Start 07/02/17 at 12:00; Stop 07/03/17 at 12:44; Status DC Oxycodone/ Acetaminophen (Percocet 5-325 Mg) 1 tab Q4H PRN PO PAIN SCALE 3 TO 5 Last administered on 07/02/17 21:02; Start 07/02/17 at 12:00; Stop at 12:44; Status DC Oxycodone/ Acetaminophen (Percocet 10-325 Mg) 1 tab Q4H PRN PO PAIN SCALE 6 TO 10; Start 07/02/17 at 12:00; Stop 07/03/17 at 12:44; Status DC Ticagrelor (Brilinta) 90 mg BID PO Last administered on 07/03/17 09:56; Start 07/02/17 at 21:00; Stop 07/03/17 at 12:44; Status DC Miscellaneous Information 1 ONCE ONCE XX ; Start 07/02/17 at 14:45; Stop at 14:46; Status DC Iohexol (OMNIPAQUE 350 INJ (Bed Bug Exterminator)) 100 ml STK-MED ONCE OTHER ; Start at 06:17; Stop 07/02/17 at 12:06; Status DC Iohexol (OMNIPAQUE 350 INJ (Bed Bug Exterminator)) 50 ml STK-MED ONCE OTHER ; Start at 06:17; Stop 07/02/17 at 12:06; Status DC Vital Signs / I&O Vital Signs Date Time Temp Pulse Resp B/P (MAP) Pulse Ox O2 Delivery O2 Flow Rate FiO2 07/03/17 12:00 66 07/03/17 11:30 97.8 68 18 153/84 (107) 96 07/03/17 11:00 62 07/03/17 10:00 70 07/03/17 09:00 70 07/03/17 08:00 67 07/03/17 07:30 18 07/03/17 07:20 97.7 67 18 152/89 (110) 95 07/03/17 07:00 67 07/03/17 06:10 67 07/03/17 05:00 76 07/03/17 04:00 97.7 63 18 153/92 (112) 94 07/03/17 04:00 67 07/03/17 03:00 75 07/03/17 02:00 82 07/03/17 01:00 72 07/03/17 00:00 97.9 64 18 144/93 (110) 95 07/03/17 00:00 64 I/O 07/03/17 07/03/17 07/03/17 07/04/17 07/04/17 07/04/17 07:00 15:00 23:00 07:00 15:00 23:00 Intake Total 240 ml Output Total 975 ml Balance -735 ml Intake Oral 240 ml Output Urine Total 975 ml Physical Exam GENERAL: NAD, AAOx3 SKIN: Warm and dry. HEAD: Atraumatic. Normocephalic. EYES: Pupils equal and round. No scleral icterus. No injection or drainage. ENT: No nasal bleeding or discharge. Mucous membranes pink and moist. NECK: Trachea midline. No JVD. CARDIOVASCULAR: Regular rate and rhythm. RESPIRATORY: No accessory muscle use. Clear to auscultation. Breath sounds equal bilaterally. GASTROINTESTINAL: Abdomen soft, non-tender, nondistended. Hepatic and splenic margins not palpable. MUSCULOSKELETAL: Extremities without clubbing, cyanosis, or edema. No obvious deformities. Left radial no hematoma, neurovascularly intact distally NEUROLOGICAL: Awake and alert. No obvious cranial nerve deficits. Motor grossly within normal limits. Five out of 5 muscle strength in the arms and legs. Normal speech. PSYCHIATRIC: Appropriate mood and affect; insight and judgment normal. Laboratory Laboratory Tests Test 07/03/17 05:00 07/03/17 07:54 Blood Urea Nitrogen 17 MG/DL Creatinine 1.20 MG/DL Random Glucose 150 MG/DL Calcium Level 10.0 MG/DL Sodium Level 138 MEQ/L Potassium Level 4.2 MEQ/L Chloride Level 104 MEQ/L Carbon Dioxide Level 26.2 MEQ/L Anion Gap 8 MEQ/L Estimat Glomerular Filtration Rate 61 ML/MIN White Blood Count 4.7 TH/MM3 Red Blood Count 4.36 MIL/MM3 Hemoglobin 12.6 GM/DL Hematocrit 38.5 % Mean Corpuscular Volume 88.5 FL Mean Corpuscular Hemoglobin 29.0 PG Mean Corpuscular Hemoglobin Concent 32.7 % Red Cell Distribution Width 14.0 % Platelet Count 109 TH/MM3 Mean Platelet Volume 11.2 FL Neutrophils (%) (Auto) 66.5 % Lymphocytes (%) (Auto) 20.6 % Monocytes (%) (Auto) 10.2 % Eosinophils (%) (Auto) 2.1 % Basophils (%) (Auto) 0.6 % Neutrophils # (Auto) 3.1 TH/MM3 Lymphocytes # (Auto) 1.0 TH/MM3 Monocytes # (Auto) 0.5 TH/MM3 Eosinophils # (Auto) 0.1 TH/MM3 Basophils # (Auto) 0.0 TH/MM3 CBC Comment AUTO DIFF Differential Comment AUTO DIFF CONFIRMED Assessment and Plan Problem List: (1) Unstable angina ICD Codes: I20.0 - Unstable angina (2) CAD (coronary artery disease) ICD Codes: I25.10 - Atherosclerotic heart disease of [place] coronary artery without angina pectoris (3) Abnormal stress test ICD Codes: R94.39 - Abnormal result of other cardiovascular function study (4) Hx of CABG ICD Codes: Z95.1 - Presence of aortocoronary bypass graft Assessment and Plan 1) Doing well post PCI of LCx 2) Con't ASA/Brilinta 3) Hx of thrombocytopenia, baseline 70-100k 4) Cardiovascularly stable for discharge Will follow up with Kemar Rodríguez DO Jul 03, 2017 23:11
== END 2017-07-03 12:42 | disposition home or self-care (01) ==
LOC: HDIC 06:16 → HCAT 06:16 → HCIS 13:58 → HCAT 07-03 12:42
PROVIDERS: ATTEND Nuclear Medicine Nuclear Cardiology
DX: I25.110 Atherosclerotic heart disease of native coronary artery with unstable angina pectoris (principal); I10 Essential (primary) hypertension; E11.9 Type 2 diabetes mellitus without complications; Z79.84 Long term (current) use of oral hypoglycemic drugs; Z79.82 Long term (current) use of aspirin; Z95.1 Presence of aortocoronary bypass graft; Z95.2 Presence of prosthetic heart valve
CPT/HCPCS: 80048; 85002; 85025; 85610; 85730; 92928; 93005; 93454; 99152; 99153; C1725; C1769; C1874; C1887; C1893; J1644; J2250; J3010; J7030; Q9967